=== PATIENT | male | born 1995 ===

== ENCOUNTER 2017-04-08 12:30 | Inpatient (IN) | payer MEDICAID ==
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
[2017-04-08 16:18] LABS: BASO % 0.5 % (0.0-2.0); EOS # 0.1 K/uL (0.0-0.7); EOS % 1.4 % (0.0-4.0); HEMATOCRIT 47.1 % (35.0-51.0); LYMPH # 2.2 K/uL (1.0-4.3); LYMPH % 25.3 % (20.0-40.0); MEAN CELL VOLUME 93.2 fl (80.0-94.0); MEAN CORPUSCULAR HEMOGLOBIN 32.1 pg (27.0-31.0); MEAN CORPUSCULAR HGB CONC 34.4 g/dL (33.0-37.0); MEAN PLATELET VOLUME 8.2 fl (7.2-11.7); MONO # 0.7 K/uL (0.0-0.8); MONO % 7.5 % (0.0-10.0); NEUT # 5.7 K/uL (1.8-7.0); NEUT % 65.3 % (50.0-75.0); NRBC % 0.1 % (0.0-0.0); RED CELL DISTRIBUTION WIDTH 12.9 % (11.5-14.5); WHITE BLOOD COUNT 8.7 K/uL (4.8-10.8)
[2017-04-08 16:22] LABS: ALB/GLOB RATIO 1.5 (1.0-2.1); ALCOHOL SERUM < 10 mg/dl (0-10); ALKALINE PHOSPHATASE 67 U/L (38-126); ALT/SGPT 38 U/L (21-72); AST/SGOT 30 U/L (17-59); BILIRUBIN,TOTAL 0.7 mg/dl (0.2-1.3); BLOOD UREA NITROGEN 8 mg/dl (9-20); CALCIUM 10.1 mg/dL (8.4-10.2); CARBON DIOXIDE 28 mmol/L (22-30); CHLORIDE 103 mmol/L (98-107); GFR AFRICAN-AMERICAN > 60; GLUCOSE,RANDOM 89 mg/dL (75-110); POTASSIUM 4.6 MMOL/L (3.6-5.0); SODIUM 146 mmol/l (132-148); TOTAL PROTEIN 8.4 G/DL (6.3-8.2)
[2017-04-08 16:46] LABS: RBC URINE 3 /hpf (0-3); URINE BACTERIA OCC (<OCC); URINE BILIRUBIN NEGATIVE (NEGATIVE); URINE BLOOD NEGATIVE (NEGATIVE); URINE COLOR YELLOW (YELLOW); URINE GLUCOSE (UA) NEG (Normal); URINE KETONE NEGATIVE (NEGATIVE); URINE LEUKOCYTE ESTERASE NEG Leu/uL (Negative); URINE PROTEIN NEGATIVE (NEGATIVE); URINE UROBILINOGEN 0.2-1.0 mg/dL (0.2-1.0); WBC URINE 3 /hpf (0-5)
[2017-04-08 18:39] VITALS: O2SAT 100
[2017-04-08] MEDS ORDERED: DiphenhydrAMINE 50 mg/ml Inj IM PRN (19:44)
[2017-04-08] MEDS ORDERED: Alum-Mag Hydrox-Simethicone Susp (30 mL) PO PRN (19:44)
[2017-04-08] MEDS ORDERED: Magnesium Hydroxide Susp 30 ml UD PO PRN (19:44)
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
[2017-04-09 06:36] LABS: T4 7.73 ug/dl (5.5-11.0)
[2017-04-09 06:49] LABS: THYROID STIMULATING HORMONE 1.76 mIU/ML (0.46-4.68)
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
--- NOTE | 2017-04-09 15:56 | CP.PCM.CON ---
<Alonso Deras - Last Filed: 04/09/17 16:00> History of Present Illness - History of Present Illness History of Present Illness: Patient seen and examined at bedside with Dr. Ospina 21 YO M w/ PMH of depression is admitted into psych. Medicine team has been consulted for a cough and congestion patient has had for the past 2 weeks. Admits to subjective fevers about a week ago but did not check his temperature. Patient has not been taking any medications for his congestion. PMH: depression PSH: None Allergy: none SH: smokes 5 cig a day for the past 7 years, uses marijuana F/H: denies Past Patient History - Past Social History Smoking Status: Light Smoker < 10 Cigarettes Daily - CARDIAC Hx Cardiac Disorders: No Hx Hypertension: No - PULMONARY Hx Tuberculosis: No - NEUROLOGICAL HX Cerebrovascular Accident: No Hx Seizures: No - HEMATOLOGICAL/ONCOLOGICAL Hx Cancer: No Hx Human Immunodeficiency Virus (HIV): No - GENITOURINARY/GYNECOLOGICAL Hx Sexually Transmitted Disorders: No - PSYCHIATRIC Hx Substance Use: Yes (Marijuana) - SURGICAL HISTORY Hx Surgeries: No - ANESTHESIA Hx Anesthesia: No Meds Allergies/Adverse Reactions: Allergies Allergy/AdvReac Type Severity Reaction Status Date / Time No Known Allergies Allergy Verified 06/14/14 01:20 - Medications Medications: Current Medications Acetaminophen (Tylenol 325mg Tab) 650 mg PO Q4 PRN PRN Reason: pain level 1 to 7 Al Hydrox/Mg Hydrox/Simethicone (Maalox Plus 30 Ml) 30 ml PO Q4 PRN PRN Reason: Dyspepsia Diphenhydramine HCl (Benadryl) 50 mg IM Q6 PRN PRN Reason: Extrapyramidal S/S Unable PO Diphenhydramine HCl (Benadryl) 50 mg PO Q6 PRN PRN Reason: Extrapyramidal Symptoms Diphenhydramine HCl (Benadryl) 50 mg PO HS PRN PRN Reason: Sleep Fluticasone Propionate (Flonase) 1 spr SANDI BID ELVI Haloperidol (Haldol) 5 mg PO Q4 PRN PRN Reason: Agitation Haloperidol Lactate (Haldol) 5 mg IM Q4 PRN PRN Reason: Agitation, Unable to Take PO Loratadine (Claritin) 10 mg PO DAILY ELVI Last Admin: 04/09/17 12:55 Dose: 10 mg Lorazepam (Ativan) 2 mg IM Q4 PRN PRN Reason: Anxiety/Agitation,Unable PO Lorazepam (Ativan) 2 mg PO Q4 PRN PRN Reason: Anxiety/Agitation Magnesium Hydroxide (Milk Of Magnesia) 30 ml PO HS PRN PRN Reason: Constipation Promethazine HCl (Phenergan Syrup) 12.5 mg PO Q6 PRN PRN Reason: Cough Pseudoephedrine HCl (Sudafed Tab) 30 mg PO Q6 PRN PRN Reason: congestion Physical Exam - Constitutional Appears: In Acute Distress - Head Exam Head Exam: ATRAUMATIC, NORMAL INSPECTION - Eye Exam Eye Exam: Normal appearance Pupil Exam: NORMAL ACCOMODATION - ENT Exam ENT Exam: Mucous Membranes Moist, Normal Exam - Neck Exam Neck exam: Positive for: Normal Inspection - Respiratory Exam Respiratory Exam: Clear to Auscultation Bilateral, NORMAL BREATHING PATTERN. absent: Rhonchi, Wheezes - Cardiovascular Exam Cardiovascular Exam: REGULAR RHYTHM, +S1, +S2 - GI/Abdominal Exam GI & Abdominal Exam: Normal Bowel Sounds, Soft - Extremities Exam Extremities exam: Positive for: normal inspection. Negative for: calf tenderness - Skin Skin Exam: Normal Color, Warm Results - Vital Signs Recent Vital Signs: Last Vital Signs Temp 97.5 F L 04/09/17 09:00 Pulse 76 04/09/17 09:00 Resp 18 04/09/17 09:00 BP 156/98 H 04/09/17 09:00 Pulse Ox 100 04/08/17 18:38 - Labs Result Diagrams: 04/08/17 16:00 04/08/17 16:00 Labs: Laboratory Results - last 24 hr 04/08/17 04/08/17 04/08/17 16:00 16:00 16:15 WBC 8.7 RBC 5.05 Hgb 16.2 Hct 47.1 MCV 93.2 MCH 32.1 H MCHC 34.4 RDW 12.9 Plt Count 287 MPV 8.2 Neut % (Auto) 65.3 Lymph % (Auto) 25.3 [place] % (Auto) 7.5 Eos % (Auto) 1.4 Baso % (Auto) 0.5 Neut # 5.7 Lymph # 2.2 Crane # 0.7 Eos # 0.1 Baso # 0.0 Sodium 146 Potassium 4.6 Chloride 103 Carbon Dioxide 28 Anion Gap 20 BUN 8 L Creatinine 0.7 L Est GFR ( Amer) > 60 Est GFR (Non-Af Amer) > 60 Random Glucose 89 Hemoglobin A1c Calcium 10.1 Total Bilirubin 0.7 AST 30 ALT 38 Alkaline Phosphatase 67 Total Protein 8.4 H Albumin 5.0 Globulin 3.4 Albumin/Globulin Ratio 1.5 Triglycerides Cholesterol LDL Cholesterol Direct HDL Cholesterol Thyroxine (T4) TSH 3rd Generation Urine Color Yellow Urine Clarity Slighty-cloudy Urine pH 7.0 Ur Specific [place] 1.018 Urine Protein Negative Urine Glucose (UA) Neg Urine Ketones Negative Urine Blood Negative Urine Nitrate Negative Urine Bilirubin Negative Urine Urobilinogen 0.2-1.0 Ur Leukocyte Esterase Neg Urine RBC (Auto) 3 Urine Microscopic WBC 3 Ur Squamous Epith Cells < 1 Urine Bacteria Occ H Alcohol, Quantitative < 10 04/09/17 04/09/17 05:50 05:50 WBC RBC Hgb Hct MCV MCH MCHC RDW Plt Count MPV Neut % (Auto) Lymph % (Auto) [place] % (Auto) Eos % (Auto) Baso % (Auto) Neut # Lymph # [place] # Eos # Baso # Sodium Potassium Chloride Carbon Dioxide Anion Gap BUN Creatinine Est GFR ( Amer) Est GFR (Non-Af Amer) Random Glucose Hemoglobin A1c 5.1 Calcium Total Bilirubin AST ALT Alkaline Phosphatase Total Protein Albumin Globulin Albumin/Globulin Ratio Triglycerides 175 H Cholesterol 172 LDL Cholesterol Direct 107 HDL Cholesterol 40 Thyroxine (T4) 7.73 TSH 3rd Generation 1.76 Urine Color Urine Clarity Urine pH Ur Specific [place] Urine Protein Urine Glucose (UA) Urine Ketones Urine Blood Urine Nitrate Urine Bilirubin Urine Urobilinogen Ur Leukocyte Esterase Urine RBC (Auto) Urine Microscopic WBC Ur Squamous Epith Cells Urine Bacteria Alcohol, Quantitative Assessment & Plan - Assessment and Plan (Free Text) Assessment: 1) URI: Most likely viral in etiology - Claritin 10 mg daily - Promethazine 12.5 mg Q6 PRN - Psuedophedrine 30 mg PO Q6 PRN 2) Depression - Manage as per psych <Kenneth Ospina - Last Filed: 04/11/17 16:37> Meds - Medications Medications: Current Medications Acetaminophen (Tylenol 325mg Tab) 650 mg PO Q4 PRN PRN Reason: pain level 1 to 7 Al Hydrox/Mg Hydrox/Simethicone (Maalox Plus 30 Ml) 30 ml PO Q4 PRN PRN Reason: Dyspepsia Diphenhydramine HCl (Benadryl) 50 mg IM Q6 PRN PRN Reason: Extrapyramidal S/S Unable PO Diphenhydramine HCl (Benadryl) 50 mg PO Q6 PRN PRN Reason: Extrapyramidal Symptoms Diphenhydramine HCl (Benadryl) 50 mg PO HS PRN PRN Reason: Sleep Escitalopram Oxalate (Lexapro) 10 mg PO DAILY [facility] Last Admin: 04/11/17 09:59 Dose: 10 mg Fluticasone Propionate (Flonase) 1 spr SANDI BID [facility] Last Admin: 04/11/17 10:02 Dose: 1 spr Haloperidol (Haldol) 5 mg PO Q4 PRN PRN Reason: Agitation Haloperidol Lactate (Haldol) 5 mg IM Q4 PRN PRN Reason: Agitation, Unable to Take PO Loratadine (Claritin) 10 mg PO DAILY [facility] Last Admin: 04/11/17 09:59 Dose: 10 mg Lorazepam (Ativan) 2 mg IM Q4 PRN PRN Reason: Anxiety/Agitation,Unable PO Lorazepam (Ativan) 2 mg PO Q4 PRN PRN Reason: Anxiety/Agitation Magnesium Hydroxide (Milk Of Magnesia) 30 ml PO HS PRN PRN Reason: Constipation Promethazine HCl (Phenergan Syrup) 12.5 mg PO Q6 PRN PRN Reason: Cough Last Admin: 04/10/17 21:06 Dose: 12.5 mg Pseudoephedrine HCl (Sudafed Tab) 30 mg PO Q6 PRN PRN Reason: congestion Last Admin: 04/10/17 17:37 Dose: 30 mg Results - Vital Signs Recent Vital Signs: Last Vital Signs Temp 97.1 F L 04/11/17 09:00 Pulse 81 04/11/17 09:00 Resp 18 04/11/17 09:00 BP 144/97 H 04/11/17 09:00 Pulse Ox 100 04/08/17 18:38 - Labs Result Diagrams: 04/08/17 16:00 04/08/17 16:00 Assessment & Plan - Assessment and Plan (Free Text) Assessment: Patient was personally seen and examined by me in rounds with residents. Available labs and diagnostic data reviewed. Case, Patient's condition and management plan Discussed with residents in rounds. Agree with resident's progress note. Plan: As ordered.
[2017-04-09] MEDS ORDERED: Promethazine 12.5 mg/10 ml Syrup PO SCH ×2 (16:00)
[2017-04-09] MEDS: Promethazine 12.5 mg/10 ml Syrup PO PRN (19:37)
[2017-04-10] MEDS: Promethazine 12.5 mg/10 ml Syrup PO PRN ×2 (08:38→21:06)
[2017-04-10 09:30] VITALS: RESP 18
--- NOTE | 2017-04-10 13:14 | PN ---
DATE: 04/10/2017 SUBJECTIVE: Patient seen and examined. Interim events noted. Psychiatry intervention noted and appreciated. Patient remains in Psych Unit, sleeping, arousable . PHYSICAL EXAMINATION GENERAL: The patient is in no acute distress. VITAL SIGNS: Stable. HEART: S1 and S2, normal and regular. LUNGS: Good bilateral air exchange. ABDOMEN: Soft, nontender. EXTREMITIES: No calf swelling. No tenderness. No acute ischemia. CENTRAL NERVOUS SYSTEM: Essentially unchanged. DIAGNOSTIC DATA: Available diagnostic data reviewed. ASSESSMENT AND PLAN: Overall, patient's general medical condition is stable. Plan as ordered. Kenneth Ospina MD
--- NOTE | 2017-04-10 15:29 | PCM.PYCHPN ---
Psychiatric Progress Note - Psychiatric Progress Note Patient seen today, length of contact: patient evaluated 30 min Patient Chief Complaint: i am depressed anxious and I need help Medical Problems: depression Mental Status Examination - Cognitive Function Orientation: Person, Place, Situation, Time - Mood Mood: Depressed - Affect Affect: Blunted, Depressed - Formal Thought Process Formal Thought Process: No Impairment - Homicidal Ideation Homicidal Ideation: No Goal/Treatment Plan - Goal/Treatment Plan Progress Toward Problem(s) and Goals/Treatment Plan: start lexapro 10 mg psychotherapy referral to rehab
--- NOTE | 2017-04-11 11:39 | PN ---
DATE: 04/11/2017 SUBJECTIVE: Patient was seen and examined. Interim events noted. Psychiatry interventions noted and appreciated. Patient remains in Psych Unit. The patient feels okay. Denies any specific medical complaint. No chest pain or shortness of breath. PHYSICAL EXAMINATION: GENERAL: The patient is in no acute distress. VITAL SIGNS: Stable. HEART: S1 and S2, normal and regular. LUNGS: Good bilateral air exchange. ABDOMEN: Soft, nontender. EXTREMITIES: No edema. No calf swelling. No tenderness. No acute ischemia. CENTRAL NERVOUS SYSTEM: Essentially unchanged. DIAGNOSTIC DATA: Available diagnostic data reviewed. ASSESSMENT AND PLAN: Overall, the patient's general medical condition is stable. Plan as ordered. Kenneth Ospina MD
--- NOTE | 2017-04-11 16:13 | PCM.PYCHPN ---
Psychiatric Progress Note - Psychiatric Progress Note Patient seen today, length of contact: patient evaluated 30 min Patient Chief Complaint: I KNOW WHAT I NEED TO DO FOR MYSELF Problems Identified/Issues Discussed: CANNAIS ABUSE DPRESSION POOR IMPULSE CONTROL DISCUSSED WITH PATIENT NEED TO BE LINKED TO OUTPATIENT INDRA PROGRAM BRIEF MOTIVATIONAL INTERVIEWIN OFFERED PATIENT ABLE TO IDENTIFY TRIGGERS FOR ANGER AND COPING SKILLS DISCUSSED Medical Problems: NON REPORTED DSM 5 Symptoms Update: CANNABIS USE DEPRESSION Medical Record Reviewed: Yes Mental Status Examination - Cognitive Function Orientation: Person, Place, Situation, Time Attention: WNL Concentration: WNL Association: WNL Fund of Knowledge: WNL Decription of patient's judgement and insights: FAIR JUDGMENT POOR INSIGHT - Mood Mood: Depressed, Neutral - Affect Affect: Blunted, Depressed Additional comments: APPROPRIATE BRIGHTER - Speech Speech: Appropriate - Language Additional comments: NORMAL - Formal Thought Process Formal Thought Process: No Impairment Psychotic Thoughts and Behaviors: DNIED PERCEPTUAL DISTURBANCES , NON ELICITED - Homicidal Ideation Homicidal Ideation: No Goal/Treatment Plan - Goal/Treatment Plan Need for Continued Stay: Discharge may exacerbated symptoms Progress Toward Problem(s) and Goals/Treatment Plan: start lexapro 10 mg psychotherapy referral to rehabCONTINUE WITH LEXAPRO 10MG PT WILL BE FOLLOWED FOR PSYCHOPHARMACOLOGICAL EFFECTS AND SIDE EFFECTS PROFILE Estimated Date of D/C: 04/12/17 - Smoking Cessation Smoking Cessation Initiated: Yes
[2017-04-11] MEDS: Promethazine 12.5 mg/10 ml Syrup PO PRN (17:31)
[2017-04-12 09:19] VITALS: BP 144/98; PULSE 77; TEMP 96.9
[2017-04-12] MEDS: Promethazine 12.5 mg/10 ml Syrup PO PRN (09:47)
--- NOTE | 2017-04-12 11:41 | PN ---
MEDICAL FOLLOWUP PROGRESS NOTE DATE: 04/12/2017 SUBJECTIVE: Patient is seen and examined. Interim events noted. Psychiatry followup and intervention noted and appreciated. Patient remains in Psych Unit. Denies any specific medical complaint. PHYSICAL EXAMINATION: GENERAL: The patient is in no acute distress. VITAL SIGNS: Stable. Physical exam is essentially unchanged. DIAGNOSTIC DATA: Available diagnostic data reviewed. ASSESSMENT AND PLAN: Overall, the patient's general medical condition is stable. Plan as ordered. Kenneth Ospina MD
--- NOTE | 2017-04-12 12:38 | CP.PCM.DIS ---
Provider - Provider Date of Admission: 04/08/17 15:54 Attending physician: Linda Napoles MD Time Spent in preparation of Discharge (in minutes): 30 Hospital Course - Lab Results Lab Results: Most Recent Lab Values WBC 8.7 K/uL (4.8-10.8) 04/08/17 16:00 RBC 5.05 Mil/uL (4.40-5.90) 04/08/17 16:00 Hgb 16.2 g/dL (12.0-18.0) 04/08/17 16:00 Hct 47.1 % (35.0-51.0) 04/08/17 16:00 MCV 93.2 fl (80.0-94.0) 04/08/17 16:00 MCH 32.1 pg (27.0-31.0) H 04/08/17 16:00 MCHC 34.4 g/dL (33.0-37.0) 04/08/17 16:00 RDW 12.9 % (11.5-14.5) 04/08/17 16:00 Plt Count 287 K/uL (130-400) 04/08/17 16:00 MPV 8.2 fl (7.2-11.7) 04/08/17 16:00 Neut % (Auto) 65.3 % (50.0-75.0) 04/08/17 16:00 Lymph % (Auto) 25.3 % (20.0-40.0) 04/08/17 16:00 [place] % (Auto) 7.5 % (0.0-10.0) 04/08/17 16:00 Eos % (Auto) 1.4 % (0.0-4.0) 04/08/17 16:00 Baso % (Auto) 0.5 % (0.0-2.0) 04/08/17 16:00 Neut # 5.7 K/uL (1.8-7.0) 04/08/17 16:00 Lymph # 2.2 K/uL (1.0-4.3) 04/08/17 16:00 [place] # 0.7 K/uL (0.0-0.8) 04/08/17 16:00 Eos # 0.1 K/uL (0.0-0.7) 04/08/17 16:00 Baso # 0.0 K/uL (0.0-0.2) 04/08/17 16:00 Sodium 146 mmol/l (132-148) 04/08/17 16:00 Potassium 4.6 MMOL/L (3.6-5.0) 04/08/17 16:00 Chloride 103 mmol/L (98-107) 04/08/17 16:00 Carbon Dioxide 28 mmol/L (22-30) 04/08/17 16:00 Anion Gap 20 (10-20) 04/08/17 16:00 BUN 8 mg/dl (9-20) L 04/08/17 16:00 Creatinine 0.7 mg/dL (0.8-1.5) L 04/08/17 16:00 Est GFR ( Amer) > 60 04/08/17 16:00 Est GFR (Non-Af Amer) > 60 04/08/17 16:00 Random Glucose 89 mg/dL (75-110) 04/08/17 16:00 Hemoglobin A1c 5.1 % (4.2-6.5) 04/09/17 05:50 Calcium 10.1 mg/dL (8.4-10.2) 04/08/17 16:00 Total Bilirubin 0.7 mg/dl (0.2-1.3) 04/08/17 16:00 AST 30 U/L (17-59) 04/08/17 16:00 ALT 38 U/L (21-72) 04/08/17 16:00 Alkaline Phosphatase 67 U/L (38-126) 04/08/17 16:00 Total Protein 8.4 G/DL (6.3-8.2) H 04/08/17 16:00 Albumin 5.0 g/dL (3.5-5.0) 04/08/17 16:00 Globulin 3.4 gm/dL (2.2-3.9) 04/08/17 16:00 Albumin/Globulin Ratio 1.5 (1.0-2.1) 04/08/17 16:00 Triglycerides 175 mg/DL (0-149) H 04/09/17 05:50 Cholesterol 172 mg/dL (0-199) 04/09/17 05:50 LDL Cholesterol Direct 107 mg/dL (0-129) 04/09/17 05:50 HDL Cholesterol 40 MG/DL (30-70) 04/09/17 05:50 Thyroxine (T4) 7.73 ug/dl (5.5-11.0) 04/09/17 05:50 TSH 3rd Generation 1.76 mIU/ML (0.46-4.68) 04/09/17 05:50 Urine Color Yellow (YELLOW) 04/08/17 16:15 Urine Clarity Slighty-cloudy (Clear) 04/08/17 16:15 Urine pH 7.0 (5.0-8.0) 04/08/17 16:15 Ur Specific [place] 1.018 (1.003-1.030) 04/08/17 16:15 Urine Protein Negative mg/dL (NEGATIVE) 04/08/17 16:15 Urine Glucose (UA) Neg mg/dL (Normal) 04/08/17 16:15 Urine Ketones Negative mg/dL (NEGATIVE) 04/08/17 16:15 Urine Blood Negative (NEGATIVE) 04/08/17 16:15 Urine Nitrate Negative (NEGATIVE) 04/08/17 16:15 Urine Bilirubin Negative (NEGATIVE) 04/08/17 16:15 Urine Urobilinogen 0.2-1.0 mg/dL (0.2-1.0) 04/08/17 16:15 Ur Leukocyte Esterase Neg Sy/uL (Negative) 04/08/17 16:15 Urine RBC (Auto) 3 /hpf (0-3) 04/08/17 16:15 Urine Microscopic WBC 3 /hpf (0-5) 04/08/17 16:15 Ur Squamous Epith Cells < 1 /hpf (0-5) 04/08/17 16:15 Urine Bacteria Occ (<OCC) H 04/08/17 16:15 Urine Opiates Screen Negative (NEGATIVE) 04/08/17 13:20 Urine Methadone Screen Negative (NEGATIVE) 04/08/17 13:20 Ur Barbiturates Screen Negative (NEGATIVE) 04/08/17 13:20 Ur Phencyclidine Scrn Negative (NEGATIVE) 04/08/17 13:20 Ur Amphetamines Screen Negative (NEGATIVE) 04/08/17 13:20 U Benzodiazepines Scrn Negative (NEGATIVE) 04/08/17 13:20 U Oth Cocaine Metabols Negative (NEGATIVE) 04/08/17 13:20 U Cannabinoids Screen Positive (NEGATIVE) H 04/08/17 13:20 Alcohol, Quantitative < 10 mg/dl (0-10) 04/08/17 16:00 RPR Nonreactive (NONREACTIVE) 04/09/17 05:50 - Hospital Course Hospital Course: patient on admission was depressed, anxious, isolative patient was started on lexapro 10mg patient was educated about the contribution of cannabis use in his depression and anxiety motivational interviewing proviced, also discussed with patient coping skills to deal with depression and anger patient affect gradually became brighter , attended groups and interacted with peers patient was able to verbalize triggers for symptoms and possible coping skills patient on discharge denied suicidal or homicidal ideations, denied perceptual disturbances, non were elicited Discharge Exam - Head Exam Head Exam: ATRAUMATIC, NORMAL INSPECTION - Psychiatric Exam Additional comments: normal thought process, speech normal mood better brighter affect denied suicidal or homicidal ideations denied perceptual disturbances , alert awake ox3 Fair insight and judgment Discharge Plan - Discharge Medications Prescriptions: Escitalopram [Lexapro] 10 mg PO DAILY #30 tab - Follow Up Plan Condition: FAIR Disposition: HOME/ ROUTINE Instructions: Depression (DC), Suicide Prevention for Adults (DC) Referrals: [facility], [facility] [Other] - 04/23/17 9:30 am
== END 2017-04-12 15:19 | disposition home or self-care (01) | DRG 748 ==
LOC: H.ER 12:30 → H.ERHOLD 15:54 → H.PSYCH 18:08
PROVIDERS: ADMIT Psychiatry & Neurology Psychiatry; ATTEND Psychiatry & Neurology Psychiatry
PROC: HZ52ZZZ Individual Psychotherapy for Substance Abuse Treatment, Cognitive-Behavioral (ICD-10-PCS; principal; 2017-04-08)
PROC: GZHZZZZ Group Psychotherapy (ICD-10-PCS; 2017-04-08)
PROC: GZ58ZZZ Individual Psychotherapy, Cognitive-Behavioral (ICD-10-PCS; 2017-04-08)
DX: F12.188 Cannabis abuse with other cannabis-induced disorder (principal); F19.14 Other psychoactive substance abuse with psychoactive substance-induced mood disorder; F41.9 Anxiety disorder, unspecified; J06.9 Acute upper respiratory infection, unspecified; F17.210 Nicotine dependence, cigarettes, uncomplicated

== ENCOUNTER 2017-09-22 07:10 | Emergency (ER) | payer MEDICAID ==
[2017-09-22 07:22] VITALS: PULSE 88; RESP 20; TEMP 97.8; O2SAT 98
[2017-09-22 10:04] LABS: BASO # 0.1 K/uL (0.0-0.2); BASO % 0.8 % (0.0-2.0); EOS # 0.2 K/uL (0.0-0.7); HEMOGLOBIN 16.1 g/dL (12.0-18.0); LYMPH # 2.5 K/uL (1.0-4.3); LYMPH % 39.7 % (20.0-40.0); MEAN CELL VOLUME 92.7 fl (80.0-94.0); MEAN CORPUSCULAR HGB CONC 35.6 g/dL (33.0-37.0); MONO # 0.5 K/uL (0.0-0.8); MONO % 8.3 % (0.0-10.0); NEUT % 48.2 % (50.0-75.0); NRBC % 0.5 % (0.0-0.0); RBC 4.88 Mil/uL (4.40-5.90); WHITE BLOOD COUNT 6.3 K/uL (4.8-10.8)
[2017-09-22 10:16] LABS: BLOOD UREA NITROGEN 9 mg/dl (9-20); CALCIUM 9.6 mg/dL (8.4-10.2); GFR AFRICAN-AMERICAN > 60; GFR NON-AFRICAN AMERICAN > 60
--- NOTE | 2017-09-22 11:04 | ED PDOC ---
HPI: Psych/Substance Abuse Time Seen by Provider: 09/22/17 08:00 Chief Complaint (Nursing): Psychiatric Evaluation Chief Complaint (Provider): Psychiatric Evaluation History Per: Patient History/Exam Limitations: no limitations Onset/Duration Of Symptoms: Days Current Symptoms Are (Timing): Still Present Modifying Factor(s): Alcohol Associated Symptoms: Depression. denies: Suicidal Thoughts Additional Complaint(s): 21 y/o male with a past medical history of bipolar disorder, brought in for alcohol intoxication. Patient admits to drinking alcohol prior to arrival. States recently he has been feeling depressed but not suicidal. Denies any suicidal ideation or homicidal ideation. No medical complaints. Patient reports he ran out of [employer] and has not followed up with psychiatrist recently. PMD: none Past Medical History Reviewed: Historical Data, Nursing Documentation, Vital Signs Vital Signs: Last Vital Signs Temp 97.8 F 09/22/17 07:18 Pulse 88 09/22/17 07:18 Resp 20 09/22/17 07:18 BP Pulse Ox 98 09/22/17 07:18 - Medical History PMH: Bipolar Disorder, Depression Denies: Diabetes, Hepatitis, HIV, HTN, Seizures, Sexually Transmitted Disease - Surgical History Surgical History: No Surg Hx - Family History Family History: States: Unknown Family Hx - Social History Alcohol: Occasional Drugs: Cannabis (smokes marijuana) - Home Medications Home Medications: Ambulatory Orders Medication Instructions Recorded Cholecalciferol [Vitamin D 1000 IU] 1 tab PO DAILY 04/08/17 Multivitamin [Multi-Vitamin Daily] 1 tab PO DAILY 04/08/17 Escitalopram [Lexapro] 10 mg PO DAILY #30 tab 09/22/17 - Allergies Allergies/Adverse Reactions: Allergies Allergy/AdvReac Type Severity Reaction Status Date / Time No Known Allergies Allergy Verified 09/22/17 07:22 Review of Systems ROS Statement: Except As Marked, All Systems Reviewed And Found Negative Constitutional: Negative for: Fever Cardiovascular: Negative for: Chest Pain Respiratory: Negative for: Shortness of Breath Gastrointestinal: Negative for: Abdominal Pain Psych: Positive for: Depression. Negative for: Suicidal ideation (or homicidal) Physical Exam - Reviewed Nursing Documentation Reviewed: Yes Vital Signs Reviewed: Yes - Physical Exam Appears: Positive for: Non-toxic, No Acute Distress Head Exam: Positive for: ATRAUMATIC, NORMOCEPHALIC Skin: Positive for: Normal Color, Warm, Dry Eye Exam: Positive for: EOMI, Normal appearance, PERRL Neck: Positive for: Normal, Painless ROM, Supple Cardiovascular/Chest: Positive for: Regular Rate, Rhythm. Negative for: Murmur Respiratory: Positive for: Normal Breath Sounds. Negative for: Accessory Muscle Use, Respiratory Distress Gastrointestinal/Abdominal: Positive for: Soft. Negative for: Tenderness, Distended Extremity: Positive for: Normal ROM, Other (moving all extremities). Negative for: Pedal Edema Neurologic/Psych: Positive for: Alert, Oriented (x3), Gait (steady), Other ( Speech is clear) - Laboratory Results Result Diagrams: 09/22/17 09:15 09/22/17 09:15 - ECG O2 Sat by Pulse Oximetry: 98 (RA) Pulse Ox Interpretation: Normal Medical Decision Making Medical Decision Making: Impression: Alcohol Intoxication, Depression Time: 8:26 Initial Plan: --Urine drug screen --Alcohol serum --BMP --CBC --Urinalysis --1:1 observation --Patient referred to production utility worker 10:35 Patient evaluated by production utility worker, and is cleared for discharge as per Dr. De. Scribe Attestation: Documented by Bonnie Rainey, acting as a scribe for Chasidy Charlton MD Provider Scribe Attestation: All medical record entries made by the Scribe were at my direction and personally dictated by me. I have reviewed the chart and agree that the record accurately reflects my personal performance of the history, physical exam, medical decision making, and the department course for this patient. I have also personally directed, reviewed, and agree with the discharge instructions and disposition. Disposition - Clinical Impression Clinical Impression: Depression - Patient ED Disposition Is Patient to be Admitted: No Counseled Patient/Family Regarding: Studies Performed, Diagnosis - Disposition Referrals: [facility] [Outside] Disposition: Routine/Home Disposition Time: 10:39 Condition: GOOD Additional Instructions: CONTINUE TO F/U AT [facility] Prescriptions: Escitalopram [Lexapro] 10 mg PO DAILY #30 tab Instructions: Depression, Adult (DC) - POA Present On Arrival: None
== END 2017-09-22 13:57 | disposition home or self-care (01) ==
LOC: H.ER 07:10
DX: F32.9 Major depressive disorder, single episode, unspecified (principal); F12.10 Cannabis abuse, uncomplicated; Z86.59 Personal history of other mental and behavioral disorders; Z00.8 Encounter for other general examination

== ENCOUNTER 2017-09-24 02:07 | Emergency (ER) | payer MEDICAID ==
--- NOTE | 2017-09-24 02:41 | ED PDOC ---
HPI: Psych/Substance Abuse Time Seen by Provider: 09/24/17 02:28 Chief Complaint (Nursing): Medical Clearance Chief Complaint (Provider): clearance Additional Complaint(s): 21 y/o male here in police custody for clearance for incarceration. Patient states he feels anxious, depressed, suicidal (without plan) and homicidal, requesting to speak with television maintenance worker. Noncompliant with Lexapro. Denies acute medical complaints. Past Medical History Reviewed: Historical Data, Nursing Documentation, Vital Signs Vital Signs: Last Vital Signs Temp 97.9 F 09/24/17 02:24 Pulse 74 09/24/17 02:24 Resp 16 09/24/17 02:24 BP 166/97 H 09/24/17 02:24 Pulse Ox 100 09/24/17 02:24 - Medical History PMH: Bipolar Disorder, Depression Denies: Diabetes, Hepatitis, HIV, HTN, Seizures, Sexually Transmitted Disease - Surgical History Surgical History: No Surg Hx - Family History Family History: States: Unknown Family Hx - Living Arrangements Living Arrangements: Alone - Social History Current smoker - smoking cessation education provided: Yes Alcohol: Social Drugs: Cannabis - Home Medications Home Medications: Ambulatory Orders Medication Instructions Recorded Cholecalciferol [Vitamin D 1000 IU] 1 tab PO DAILY 04/08/17 Multivitamin [Multi-Vitamin Daily] 1 tab PO DAILY 04/08/17 Escitalopram [Lexapro] 10 mg PO DAILY #30 tab 09/22/17 - Allergies Allergies/Adverse Reactions: Allergies Allergy/AdvReac Type Severity Reaction Status Date / Time No Known Allergies Allergy Verified 09/22/17 07:22 Review of Systems ROS Statement: Except As Marked, All Systems Reviewed And Found Negative Psych: Positive for: Anxiety, Depression, Suicidal ideation Physical Exam - Reviewed Nursing Documentation Reviewed: Yes Vital Signs Reviewed: Yes - Physical Exam Appears: Positive for: Well, Non-toxic, No Acute Distress Head Exam: Positive for: ATRAUMATIC, NORMAL INSPECTION, NORMOCEPHALIC Skin: Positive for: Normal Color Eye Exam: Positive for: Normal appearance ENT: Positive for: Normal ENT Inspection Cardiovascular/Chest: Positive for: Regular Rate, Rhythm Respiratory: Positive for: Normal Breath Sounds Gastrointestinal/Abdominal: Positive for: Normal Exam Back: Positive for: Normal Inspection Extremity: Positive for: Normal ROM Neurologic/Psych: Positive for: Alert, Oriented - ECG O2 Sat by Pulse Oximetry: 100 - Progress ED Course And Treament: Patient evaluated by television maintenance worker and cleared for discharge as per Dr. De. Information given for outpatient follow up. Disposition - Clinical Impression Clinical Impression: Depression - Patient ED Disposition Is Patient to be Admitted: No Counseled Patient/Family Regarding: Diagnosis, Need For Followup - Disposition Disposition: Discharged/Transfer to Law Enforcement Disposition Time: 04:19 Condition: STABLE Additional Instructions: Patient medically and psychiatrically cleared for incarceration. Follow up at your scheduled appointment. Instructions: Depression, Adult (DC) Forms: [employer] ([place])
[2017-09-24 04:15] VITALS: BP 130/79; PULSE 58; RESP 14; TEMP 98
[2017-09-24 04:19] VITALS: O2SAT 100
== END 2017-09-24 04:47 ==
LOC: H.ER 02:07
DX: F31.9 Bipolar disorder, unspecified (principal); Z91.19 Patient's noncompliance with other medical treatment and regimen

== ENCOUNTER 2018-07-17 14:45 | Inpatient (IN) | payer MEDICAID ==
[2018-07-17 14:50] VITALS: O2SAT 100
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
[2018-07-17 19:22] LABS: BASO # 0.1 K/uL (0.0-0.2); BASO % 0.7 % (0.0-2.0); EOS # 0.1 K/uL (0.0-0.7); EOS % 0.6 % (0.0-4.0); HEMOGLOBIN 16.5 g/dL (12.0-18.0); LYMPH # 2.6 K/uL (1.0-4.3); LYMPH % 22.9 % (20.0-40.0); MEAN CELL VOLUME 92.6 fl (80.0-94.0); MEAN CORPUSCULAR HEMOGLOBIN 31.2 pg (27.0-31.0); MEAN CORPUSCULAR HGB CONC 33.8 g/dL (33.0-37.0); MEAN PLATELET VOLUME 8.2 fl (7.2-11.7); MONO # 0.7 K/uL (0.0-0.8); MONO % 6.4 % (0.0-10.0); NEUT # 7.8 K/uL (1.8-7.0); NEUT % 69.4 % (50.0-75.0); RBC 5.28 Mil/uL (4.40-5.90); RED CELL DISTRIBUTION WIDTH 13.5 % (11.5-14.5); WHITE BLOOD COUNT 11.2 K/uL (4.8-10.8)
[2018-07-17 19:27] LABS: URINE AMORPHOUS SEDIMENT MODERATE /ul (<OCC); URINE BILIRUBIN NEGATIVE (NEGATIVE); URINE BLOOD NEGATIVE (NEGATIVE); URINE CLARITY TURBID (Clear); URINE COLOR YELLOW (YELLOW); URINE GLUCOSE (UA) NEG (NEGATIVE); URINE LEUKOCYTE ESTERASE NEG Leu/uL (Negative); URINE PROTEIN 30 mg/dL (NEGATIVE); URINE UROBILINOGEN 0.2-1.0 mg/dL (0.2-1.0)
[2018-07-17 19:37] LABS: ALB/GLOB RATIO 1.4 (1.0-2.1); ALBUMIN 4.8 g/dL (3.5-5.0); ALT/SGPT 52 U/L (21-72); AST/SGOT 34 U/L (17-59); BLOOD UREA NITROGEN 11 mg/dl (9-20); CALCIUM 9.9 mg/dL (8.4-10.2); GFR NON-AFRICAN AMERICAN > 60
[2018-07-17 19:53] LABS: BARBITURATES, UR NEGATIVE (NEGATIVE); BENZODIAZEPINES, UR NEGATIVE (NEGATIVE); OPIATES, UR NEGATIVE (NEGATIVE); PHENCYCLIDINE, UR NEGATIVE (NEGATIVE)
[2018-07-17] MEDS ORDERED: Alum-Mag Hydrox-Simethicone Susp (30 mL) PO PRN (21:24)
[2018-07-17] MEDS ORDERED: DiphenhydrAMINE 50 mg/ml Inj IM PRN (21:24)
[2018-07-17] MEDS ORDERED: Magnesium Hydroxide Susp 30 ml UD PO PRN (21:24)
--- NOTE | 2018-07-17 22:10 | PCM.BM ---
<Suzanne Garcia - Last Filed: 07/17/18 22:07> Treatment Plan Problems - Problems identified on initial assessmt Medication nonadherence Date Initiated: 07/17/18 Time Initiated: 22:08 Assessment reference: NA Status: Active Altered Sleep Patterns Date Initiated: 07/17/18 Time Initiated: 22:09 Assessment reference: NA Status: Active Treatment assets and liabiliti Patient Assests: ADL independent, physically healthy, negotiates basic needs Patient Liabilities: financial problems, poor support system, relationship conflicts, substance abuse - Milieu Protocol Maintain good personal hygiene: daily Encourage regular showers, every shift Remind patient to perform daily oral care Conduct patient checks and document Observation sheet: Q15 minutes Maintain personal safety: every shift Educate patient to report safety concerns to staff, every shift Monitor environment for contraband/sharps Medication safety: Monitor for expected outcome, potential side effects: every shift, Assess barriers to learning: every shift, Assess readiness for medication education: every shift <Wu Amador - Last Filed: 07/21/18 11:04> - Diagnosis (1) Psychosis Status: Acute Interventions: pharmacotherapy 07/21/18 11:04
[2018-07-18] MEDS ORDERED: OLANZapine 5 mg Disintegrating Tab PO STA (11:21)
--- NOTE | 2018-07-18 15:10 | CP.PCM.CON ---
<Sultan Luis E - Last Filed: 07/18/18 15:21> History of Present Illness - History of Present Illness History of Present Illness: 22 year old male with PMHx of depression is admitted due to medication non adherence and aggressive behavior at home. Per protocol, medicine team is consulted. Patient denies any cough, congestion, sore throat, GI, complaints, fever or chills. Denies any acute complaints. ROS: all 12 systems reviewed and negative except as mentioned above PMH: Depression PSH: None Social hx: Smokes cannabis daily. Cocaine use. Social Etoh use. Family hx: denies Allergies: NKDA Medication: Lexapro 10 mg Review of Systems - Review of Systems All systems: reviewed and no additional remarkable complaints except Past Patient History - Past Social History Alcohol: Social Drugs: Cannabis - CARDIAC Hx Cardiac Disorders: No Hx Hypertension: No - PULMONARY Hx Respiratory Disorders: No Hx Tuberculosis: No - NEUROLOGICAL Hx Neurological Disorder: No Hx Seizures: No - HEENT Hx HEENT Problems: No - RENAL Hx Chronic Kidney Disease: No - ENDOCRINE/METABOLIC Hx Endocrine Disorders: No - HEMATOLOGICAL/ONCOLOGICAL Hx Blood Disorders: No Hx Human Immunodeficiency Virus (HIV): No - INTEGUMENTARY Hx Dermatological Problems: No - MUSCULOSKELETAL/RHEUMATOLOGICAL Hx Musculoskeletal Disorders: No - GASTROINTESTINAL Hx Gastrointestinal Disorders: No - GENITOURINARY/GYNECOLOGICAL Hx Genitourinary Disorders: No Hx Sexually Transmitted Disorders: No - PSYCHIATRIC Hx Anxiety: Yes Hx Bipolar Disorder: Yes Hx Depression: Yes - SURGICAL HISTORY Hx Surgeries: No - ANESTHESIA Hx Anesthesia: No Hx Anesthesia Reactions: No Hx Malignant Hyperthermia: No Meds Allergies/Adverse Reactions: Allergies Allergy/AdvReac Type Severity Reaction Status Date / Time No Known Allergies Allergy Verified 09/22/17 07:22 - Medications Medications: Current Medications Acetaminophen (Tylenol 325mg Tab) 650 mg PO Q4 PRN PRN Reason: pain (1-7) Al Hydrox/Mg Hydrox/Simethicone (Maalox Plus 30 Ml) 30 ml PO Q4 PRN PRN Reason: Dyspepsia Diphenhydramine HCl (Benadryl) 50 mg IM Q6 PRN PRN Reason: Extrapyramidal S/S Unable PO Diphenhydramine HCl (Benadryl) 50 mg PO Q6 PRN PRN Reason: Extrapyramidal Symptoms Diphenhydramine HCl (Benadryl) 50 mg PO HS PRN PRN Reason: Sleep Gabapentin (Neurontin) 300 mg PO TID [facility] Last Admin: 07/18/18 15:07 Dose: 300 mg Haloperidol (Haldol) 5 mg PO Q4 PRN PRN Reason: Agitation Haloperidol Lactate (Haldol) 5 mg IM Q4 PRN PRN Reason: Agitation, Unable to Take PO Lorazepam (Ativan) 2 mg IM Q4 PRN PRN Reason: Anxiety/Agitation,Unable PO Lorazepam (Ativan) 1 mg PO Q6 PRN PRN Reason: Anxiety/Agitation Magnesium Hydroxide (Milk Of Magnesia) 30 ml PO HS PRN PRN Reason: Constipation Physical Exam - Constitutional Appears: No Acute Distress - Head Exam Head Exam: NORMAL INSPECTION - Eye Exam Eye Exam: Normal appearance - ENT Exam ENT Exam: Mucous Membranes Moist - Neck Exam Neck exam: Positive for: Normal Inspection - Respiratory Exam Respiratory Exam: Clear to Auscultation Bilateral, NORMAL BREATHING PATTERN. absent: Rhonchi, Wheezes - Cardiovascular Exam Cardiovascular Exam: REGULAR RHYTHM, +S1, +S2 - GI/Abdominal Exam GI & Abdominal Exam: Normal Bowel Sounds, Soft. absent: Tenderness - Extremities Exam Extremities exam: Positive for: normal inspection - Neurological Exam Neurological exam: Alert, Oriented x3 - Psychiatric Exam Psychiatric exam: Anxious - Skin Skin Exam: Normal Color Results - Vital Signs Recent Vital Signs: Last Vital Signs Temp 98.4 F 07/17/18 20:24 Pulse 81 07/17/18 21:35 Resp 18 07/17/18 20:24 BP 107/74 07/17/18 20:24 Pulse Ox 100 07/17/18 23:52 - Labs Result Diagrams: 07/17/18 19:00 07/17/18 19:00 Labs: Laboratory Results - last 24 hr 07/17/18 07/17/18 07/17/18 19:00 19:00 19:00 WBC 11.2 H D RBC 5.28 Hgb 16.5 Hct 48.9 MCV 92.6 MCH 31.2 H MCHC 33.8 RDW 13.5 Plt Count 263 MPV 8.2 Neut % (Auto) 69.4 Lymph % (Auto) 22.9 Nash % (Auto) 6.4 Eos % (Auto) 0.6 Baso % (Auto) 0.7 Neut # (Auto) 7.8 H Lymph # (Auto) 2.6 Nash # (Auto) 0.7 Eos # (Auto) 0.1 Baso # (Auto) 0.1 Sodium 141 Potassium 4.2 Chloride 100 Carbon Dioxide 31 H Anion Gap 14 BUN 11 Creatinine 0.8 Est GFR ( Amer) > 60 Est GFR (Non-Af Amer) > 60 Random Glucose 102 Calcium 9.9 Total Bilirubin 0.4 AST 34 ALT 52 Alkaline Phosphatase 60 Total Protein 8.4 H Albumin 4.8 Globulin 3.5 Albumin/Globulin Ratio 1.4 Urine Color Urine Clarity Urine pH Ur Specific [place] Urine Protein Urine Glucose (UA) Urine Ketones Urine Blood Urine Nitrate Urine Bilirubin Urine Urobilinogen Ur Leukocyte Esterase Amorphous Sediment Urine Opiates Screen Negative Urine Methadone Screen Negative Ur Barbiturates Screen Negative Ur Phencyclidine Scrn Negative Ur Amphetamines Screen Negative U Benzodiazepines Scrn Negative U Oth Cocaine Metabols Positive H U Cannabinoids Screen Positive H Alcohol, Quantitative < 10 07/17/18 19:00 WBC RBC Hgb Hct MCV MCH MCHC RDW Plt Count MPV Neut % (Auto) Lymph % (Auto) Nash % (Auto) Eos % (Auto) Baso % (Auto) Neut # (Auto) Lymph # (Auto) Nash # (Auto) Eos # (Auto) Baso # (Auto) Sodium Potassium Chloride Carbon Dioxide Anion Gap BUN Creatinine Est GFR ( Amer) Est GFR (Non-Af Amer) Random Glucose Calcium Total Bilirubin AST ALT Alkaline Phosphatase Total Protein Albumin Globulin Albumin/Globulin Ratio Urine Color Yellow Urine Clarity Turbid Urine pH 7.0 Ur Specific [place] 1.020 Urine Protein 30 Urine Glucose (UA) Neg Urine Ketones Negative Urine Blood Negative Urine Nitrate Negative Urine Bilirubin Negative Urine Urobilinogen 0.2-1.0 Ur Leukocyte Esterase Neg Amorphous Sediment Moderate H Urine Opiates Screen Urine Methadone Screen Ur Barbiturates Screen Ur Phencyclidine Scrn Ur Amphetamines Screen U Benzodiazepines Scrn U Oth Cocaine Metabols U Cannabinoids Screen Alcohol, Quantitative Assessment & Plan - Assessment and Plan (Free Text) Assessment: 22 year old male with PMHx of depression is admitted to psychiatry unit due to medication non adherence and aggressive behavior at home Plan: Depression -Manage as per psychiatry team Leukocytosis -WBC 11.2 w/ no left shift -Afebrile with stable BP -Denies any acute complaints -f/u AM CBC Elevated blood pressure likely 2/2 cocaine use -stable now -continue to monitor plan discussed with Dr. Gianni Kimbrough, pgy-2 <Tesfaye Archer - Last Filed: 07/20/18 20:50> Meds - Medications Medications: Current Medications Acetaminophen (Tylenol 325mg Tab) 650 mg PO Q4 PRN PRN Reason: pain (1-7) Al Hydrox/Mg Hydrox/Simethicone (Maalox Plus 30 Ml) 30 ml PO Q4 PRN PRN Reason: Dyspepsia Diphenhydramine HCl (Benadryl) 50 mg IM Q6 PRN PRN Reason: Extrapyramidal S/S Unable PO Diphenhydramine HCl (Benadryl) 50 mg PO Q6 PRN PRN Reason: Extrapyramidal Symptoms Diphenhydramine HCl (Benadryl) 50 mg PO HS PRN PRN Reason: Sleep Gabapentin (Neurontin) 300 mg PO TID [facility] Last Admin: 07/20/18 17:24 Dose: 300 mg Haloperidol (Haldol) 5 mg PO Q4 PRN PRN Reason: Agitation Haloperidol Lactate (Haldol) 5 mg IM Q4 PRN PRN Reason: Agitation, Unable to Take PO Lorazepam (Ativan) 2 mg IM Q4 PRN PRN Reason: Anxiety/Agitation,Unable PO Lorazepam (Ativan) 1 mg PO Q6 PRN PRN Reason: Anxiety/Agitation Magnesium Hydroxide (Milk Of Magnesia) 30 ml PO HS PRN PRN Reason: Constipation Olanzapine (Zyprexa Zydis) 5 mg PO DAILY [facility] Last Admin: 07/20/18 09:36 Dose: 5 mg Olanzapine (Zyprexa Zydis) 10 mg PO HS [facility] Last Admin: 07/19/18 21:00 Dose: 10 mg Results - Vital Signs Recent Vital Signs: Last Vital Signs Temp 97.3 F L 07/20/18 09:00 Pulse 87 07/20/18 09:00 Resp 18 07/20/18 09:00 BP 139/79 07/20/18 09:00 Pulse Ox 100 07/17/18 23:52 - Labs Result Diagrams: 07/17/18 19:00 07/17/18 19:00 Assessment & Plan - Assessment and Plan (Free Text) Plan: I was present during evaluation and discussed with Dr Sultan land plans of care and mgt. tesfaye Archer M.D.
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
[2018-07-18] MEDS: OLANZapine 10 mg Disintegrating Tab PO SCH (21:23)
--- NOTE | 2018-07-19 10:06 | PCM.PYCHPN ---
Psychiatric Progress Note - Psychiatric Progress Note Patient seen today, length of contact: Pt evaluated, chart reviewed, case discussed w/ team Patient Chief Complaint: Patient refusing to talk with caption writer Problems Identified/Issues Discussed: Window Shade Cutter made several attempts to talk with patient. He just keeps his eyes closed, rolls over in bed and puts that covers and pillow over his head. Patient is clearly awake and in no acute distress. Patient has been spending most of the time in his room. Medication Change: No Medical Record Reviewed: Yes Consults ordered or reviewed: Medicine consult Mental Status Examination - Cognitive Function Orientation: Person, Place, Situation, Time Memory: Intact Decription of patient's judgement and insights: Poor I/J - Affect Affect: Constricted - Formal Thought Process Formal Thought Process: Delusions, Paranoia Psychotic Thoughts and Behaviors: Patient has been paranoid, likely has continued paranoia as he is unwilling to engage in conversation w/ caption writer - Homicidal Ideation Homicidal Ideation: No Goal/Treatment Plan - Goal/Treatment Plan Need for Continued Stay: Remain at risks for inpatient hospitalization, Discharge may exacerbated symptoms Progress Toward Problem(s) and Goals/Treatment Plan: Bipolar disorder, Cocaine induced psychotic disorder, Cocaine abuse, Cannabis abuse, Antisocial personality disorder -Continue Zyprexa 5 mg PO AM/ 10 mg PO HS -Continue Gabapentin 300 mg PO TID -Individual and group therapy -Psychoeducation -Medicine consult -Disposition planning
[2018-07-19] MEDS: OLANZapine 5 mg Disintegrating Tab PO SCH (12:21)
[2018-07-19] MEDS: OLANZapine 10 mg Disintegrating Tab PO SCH (21:00)
--- NOTE | 2018-07-20 08:31 | PCM.PYCHPN ---
Psychiatric Progress Note - Psychiatric Progress Note Patient seen today, length of contact: Pt evaluated, chart reviewed, case discussed w/ team Patient Chief Complaint: Patient refusing to talk with ghost writer Problems Identified/Issues Discussed: Patient continues to refuse to talk w/ ghost writer. He continues to have periods of irritability and has been observed by staff to be laughing to himself and seems internally preoccupied. Patient spends most of the day in his bed under the covers. Patient submitted a 48 hr letter requesting to be discharged and will be screened for involuntary psychiatric commitment. Medication Change: No Medical Record Reviewed: Yes Consults ordered or reviewed: Medicine consult Mental Status Examination - Cognitive Function Orientation: Person, Place, Situation, Time Memory: Intact Decription of patient's judgement and insights: Poor I/J - Affect Affect: Constricted - Formal Thought Process Formal Thought Process: Delusions, Paranoia Psychotic Thoughts and Behaviors: +Internal preoccupation; patient refuses to talk w/ ghost writer Goal/Treatment Plan - Goal/Treatment Plan Need for Continued Stay: Remain at risks for inpatient hospitalization, Discharge may exacerbated symptoms Progress Toward Problem(s) and Goals/Treatment Plan: Bipolar disorder, Cocaine induced psychotic disorder, Cocaine abuse, Cannabis abuse, Antisocial personality disorder -Continue Zyprexa 5 mg PO AM/ 10 mg PO HS -Continue Gabapentin 300 mg PO TID -Individual and group therapy -Psychoeducation -Medicine consult -Screen for involuntary psychiatric admission
[2018-07-20] MEDS: OLANZapine 5 mg Disintegrating Tab PO SCH (09:36)
[2018-07-20] MEDS: OLANZapine 10 mg Disintegrating Tab PO SCH (21:08)
[2018-07-21] MEDS ORDERED: Haloperidol Lactate 2 mg/ml Liquid PO PRN (08:30)
[2018-07-21] MEDS: OLANZapine 5 mg Disintegrating Tab PO SCH (08:53)
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
[2018-07-21] MEDS: OLANZapine 10 mg Disintegrating Tab PO SCH (21:07)
[2018-07-21] MEDS ORDERED: FLUoxetine Elix 20 MG/5 ML PO SCH (22:00)
--- NOTE | 2018-07-22 08:26 | CP.PCM.PN ---
Subjective - Date & Time of Evaluation Date of Evaluation: 07/22/18 Time of Evaluation: 08:10 - Subjective Subjective: Patient seen and examined w/ Dr. Archer Denies any acute complaints. Denies any cough, nasal congestion, fever, GI or complaints. Objective - Vital Signs/Intake and Output Vital Signs (last 24 hours): Temp Pulse Resp BP Pulse Ox 98.1 F 83 18 136/76 100 07/21/18 17:00 07/21/18 17:00 07/21/18 17:00 07/21/18 17:00 07/17/18 23:52 - Medications Medications: Current Medications Acetaminophen (Tylenol 325mg Tab) 650 mg PO Q4 PRN PRN Reason: pain (1-7) Al Hydrox/Mg Hydrox/Simethicone (Maalox Plus 30 Ml) 30 ml PO Q4 PRN PRN Reason: Dyspepsia Diphenhydramine HCl (Benadryl) 50 mg IM Q6 PRN PRN Reason: Extrapyramidal S/S Unable PO Diphenhydramine HCl (Benadryl) 50 mg PO Q6 PRN PRN Reason: Extrapyramidal Symptoms Diphenhydramine HCl (Benadryl) 50 mg PO HS PRN PRN Reason: Sleep Fluoxetine HCl (Prozac) 20 mg PO HS [facility] Last Admin: 07/21/18 21:07 Dose: 20 mg Gabapentin (Neurontin) 300 mg PO TID [facility] Last Admin: 07/21/18 17:22 Dose: 300 mg Haloperidol Lactate (Haldol) 5 mg IM Q4 PRN PRN Reason: Agitation, Unable to Take PO Haloperidol Lactate (Haldol) 5 mg PO Q4 PRN PRN Reason: Agitation Lorazepam (Ativan) 2 mg IM Q4 PRN PRN Reason: Anxiety/Agitation,Unable PO Lorazepam (Ativan) 1 mg PO Q6 PRN PRN Reason: Anxiety/Agitation Magnesium Hydroxide (Milk Of Magnesia) 30 ml PO HS PRN PRN Reason: Constipation Olanzapine (Zyprexa Zydis) 10 mg PO HS [facility] Last Admin: 07/21/18 21:07 Dose: 10 mg Olanzapine (Zyprexa Zydis) 5 mg PO DAILY [facility] - Labs Labs: 07/17/18 19:00 07/17/18 19:00 - Constitutional Appears: No Acute Distress - Head Exam Head Exam: NORMAL INSPECTION - Eye Exam Eye Exam: Normal appearance - ENT Exam ENT Exam: Mucous Membranes Moist - Respiratory Exam Respiratory Exam: Clear to Ausculation Bilateral, NORMAL BREATHING PATTERN. absent: Rhonchi, Wheezes - Cardiovascular Exam Cardiovascular Exam: REGULAR RHYTHM, +S1, +S2 - GI/Abdominal Exam GI & Abdominal Exam: Soft, Normal Bowel Sounds. absent: Tenderness - Extremities Exam Extremities Exam: Normal Inspection. absent: Calf Tenderness - Neurological Exam Neurological Exam: Alert, Awake, Oriented x3 - Psychiatric Exam Psychiatric exam: Normal Affect Assessment and Plan - Assessment and Plan (Free Text) Assessment: 22 year old male with PMHx of depression is admitted to psychiatry unit due to medication non adherence and aggressive behavior at home Plan: Bipolar disorder MRE mixed severe with psychotic features -Manage as per psychiatry team Leukocytosis -WBC 11.2 w/ no left shift on admission -Afebrile with stable BP -Denies any acute complaints -f/u AM CBC Elevated blood pressure likely 2/2 cocaine use -stable now -continue to monitor Patient seen, examined and plan discussed with Dr. Gianni Kimbrough, pgy-2
[2018-07-22] MEDS ORDERED: OLANZapine 10 mg Disintegrating Tab PO SCH (09:00)
[2018-07-22] MEDS ORDERED: OLANZapine 5 mg Disintegrating Tab PO SCH ×2 (09:00→22:00)
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
[2018-07-23 07:01] LABS: BASO # 0.1 K/uL (0.0-0.2); BASO % 1.1 % (0.0-2.0); EOS # 0.3 K/uL (0.0-0.7); EOS % 4.2 % (0.0-4.0); HEMOGLOBIN 16.6 g/dL (12.0-18.0); LYMPH # 2.9 K/uL (1.0-4.3); LYMPH % 39.9 % (20.0-40.0); MEAN CELL VOLUME 91.9 fl (80.0-94.0); MEAN CORPUSCULAR HEMOGLOBIN 32.4 pg (27.0-31.0); MEAN CORPUSCULAR HGB CONC 35.2 g/dL (33.0-37.0); MEAN PLATELET VOLUME 8.2 fl (7.2-11.7); MONO # 0.7 K/uL (0.0-0.8); MONO % 9.9 % (0.0-10.0); NEUT # 3.2 K/uL (1.8-7.0); NEUT % 44.9 % (50.0-75.0); RBC 5.11 Mil/uL (4.40-5.90); RED CELL DISTRIBUTION WIDTH 13.4 % (11.5-14.5); WHITE BLOOD COUNT 7.2 K/uL (4.8-10.8)
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
[2018-07-24 09:19] VITALS: BP 136/87; PULSE 84; RESP 19; TEMP 98.1
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
== END 2018-07-24 14:34 | disposition home or self-care (01) | DRG 430 ==
LOC: H.ER 14:45 → H.ERHOLD 18:24 → H.PSYCH 21:22
PROVIDERS: ADMIT Psychiatry & Neurology Psychiatry; ATTEND Psychiatry & Neurology Psychiatry
PROC: GZHZZZZ Group Psychotherapy (ICD-10-PCS; principal; 2018-07-17)
PROC: HZ57ZZZ Individual Psychotherapy for Substance Abuse Treatment, Motivational Enhancement (ICD-10-PCS; 2018-07-17)
PROC: HZ56ZZZ Individual Psychotherapy for Substance Abuse Treatment, Psychoeducation (ICD-10-PCS; 2018-07-17)
PROC: GZ58ZZZ Individual Psychotherapy, Cognitive-Behavioral (ICD-10-PCS; 2018-07-17)
PROC: GZ56ZZZ Individual Psychotherapy, Supportive (ICD-10-PCS; 2018-07-17)
DX: F31.9 Bipolar disorder, unspecified (principal); F11.10 Opioid abuse, uncomplicated; F14.10 Cocaine abuse, uncomplicated; F12.10 Cannabis abuse, uncomplicated; Z91.14 Patient's other noncompliance with medication regimen; Z91.19 Patient's noncompliance with other medical treatment and regimen; F17.200 Nicotine dependence, unspecified, uncomplicated